=== PATIENT | female | born 1985 | race African-American/Black ===

== ENCOUNTER 2020-03-13 07:00 | Outpatient (CLI) | payer OTHER ==
[2020-03-15 20:15] LABS: CANDIDA GROUP DNA NEGATIVE (NEGATIVE); CANDIDA KRUSEI DNA NEGATIVE (NEGATIVE); TRICHOMONAS VAGINALIS DNA NEGATIVE (NEGATIVE)
== END 2020-03-13 23:59 | disposition home or self-care (01) ==
LOC: LAB.R 07:00
PROVIDERS: ATTEND Nurse Practitioner
DX: N76.0 Acute vaginitis (principal)
CPT/HCPCS: 87661; 87801

== ENCOUNTER 2020-03-21 08:00 | Outpatient (CLI) | payer OTHER ==
[2020-03-21 19:04] LABS: BASOPHILS # (AUTO) 0.1 10^3/uL (0.0-0.1); BASOPHILS % (AUTO) 0.7 %; EOSINOPHILS # (AUTO) 0.2 10^3/uL (0.0-0.7); EOSINOPHILS % (AUTO) 2.7 %; HGB - HEMOGLOBIN 11.8 g/dL (12.0-16.0); LYMPHOCYTES % (AUTO) 29.9 %; MEAN CORPUSCULAR HEMOGLOBIN 25.3 pg (27.0-31.0); MEAN CORPUSCULAR HGB CONC 31.6 g/dL (32.0-36.0); MEAN CORPUSCULAR VOLUME 79.9 fL (81.0-99.0); MEAN PLATELET VOLUME 10.6 fL (7.9-10.8); MONOCYTES # (AUTO) 0.5 10^3/uL (0.0-1.0); MONOCYTES % (AUTO) 8.1 %; NEUTROPHILS # (AUTO) 3.9 10^3/uL (1.5-6.6); NEUTROPHILS % (AUTO) 58.2 %; PLT - PLATELET COUNT 365 10^3/uL (130-450); RED BLOOD COUNT 4.67 10^6/uL (4.20-5.40); RED CELL DISTRIBUTION WIDTH 15.1 % (12.0-15.0); WHITE BLOOD COUNT 6.7 x10^3/uL (4.8-10.8)
[2020-03-21 19:39] LABS: ALBUMIN 3.8 g/dL (3.2-5.5); ALBUMIN/GLOBULIN RATIO 0.9 (1.0-2.2); ALKALINE PHOSPHATASE 50 IU/L (42-121); ALT ALANINE AMINOTRANSFERASE 17 IU/L (10-60); AST ASPARTATE AMINOTRANSFERASE 15 IU/L (10-42); BILIRUBIN,TOTAL 0.4 mg/dL (0.2-1.0); BUN - BLOOD UREA NITROGEN 11 mg/dL (6-20); CALCIUM 9.1 mg/dL (8.5-10.3); CARBON DIOXIDE - CO2 23 mmol/L (21-32); CHLORIDE 102 mmol/L (101-111); CHOL/HDL RATIO 2.4 (<4.4); CHOLESTEROL 194 mg/dL; CREATININE 0.8 mg/dL (0.4-1.0); GLUCOSE 80 mg/dL (70-100); HDL CHOLESTEROL 81 mg/dL; LDL CHOLESTEROL,CALCULATED 101 mg/dL; LDL/HDL RATIO 1.2 (<4.4); SODIUM 137 mmol/L (135-145); VLDL CHOLESTEROL 12 mg/dL
== END 2020-03-21 08:01 | disposition home or self-care (01) ==
LOC: LAB.WCP 08:00
PROVIDERS: ATTEND Nurse Practitioner
DX: E66.9 Obesity, unspecified (principal); Z13.220 Encounter for screening for lipoid disorders; Z13.228 Encounter for screening for other metabolic disorders
CPT/HCPCS: 36415; 80053; 80061; 83721; 84443; 85025

== ENCOUNTER 2020-04-01 14:06 | Outpatient (CLI) | payer OTHER ==
[2020-04-01 18:22] LABS: % IRON SATURATION 10 % (20-50); IRON 35 ug/dL (28-170); TOTAL IRON BINDING CAPACITY 354 ug/dL (250-450); TRANSFERRIN 253 mg/dL (192-382)
== END 2020-04-01 23:59 | disposition home or self-care (01) ==
LOC: LAB.WCP 14:06
PROVIDERS: ATTEND Nurse Practitioner
DX: D50.9 Iron deficiency anemia, unspecified (principal)
CPT/HCPCS: 36415; 82728; 83540; 84466

== ENCOUNTER 2020-05-09 08:00 | Outpatient (CLI) | payer OTHER ==
[2020-05-09 18:05] LABS: BASOPHILS # (AUTO) 0.1 10^3/uL (0.0-0.1); BASOPHILS % (AUTO) 0.7 %; EOSINOPHILS # (AUTO) 0.2 10^3/uL (0.0-0.7); EOSINOPHILS % (AUTO) 2.7 %; LYMPHOCYTES # (AUTO) 2.1 10^3/uL (1.5-3.5); MEAN CORPUSCULAR HEMOGLOBIN 25.3 pg (27.0-31.0); MEAN CORPUSCULAR HGB CONC 31.7 g/dL (32.0-36.0); MEAN PLATELET VOLUME 11.1 fL (7.9-10.8); MONOCYTES # (AUTO) 0.6 10^3/uL (0.0-1.0); MONOCYTES % (AUTO) 8.3 %; NEUTROPHILS # (AUTO) 4.3 10^3/uL (1.5-6.6); NEUTROPHILS % (AUTO) 58.9 %; PLT - PLATELET COUNT 370 10^3/uL (130-450); RED BLOOD COUNT 4.74 10^6/uL (4.20-5.40); RED CELL DISTRIBUTION WIDTH 15.2 % (12.0-15.0); WHITE BLOOD COUNT 7.4 x10^3/uL (4.8-10.8)
[2020-05-09 18:18] LABS: % IRON SATURATION 13 % (20-50); IRON 57 ug/dL (28-170); TOTAL IRON BINDING CAPACITY 431 ug/dL (250-450); TRANSFERRIN 308 mg/dL (192-382)
== END 2020-05-09 23:59 | disposition home or self-care (01) ==
LOC: LAB.WCP 08:00
PROVIDERS: ATTEND Nurse Practitioner
DX: D50.9 Iron deficiency anemia, unspecified (principal)
CPT/HCPCS: 36415; 83540; 84466; 85025

== ENCOUNTER 2020-09-13 15:19 | Outpatient (CLI) | payer OTHER ==
[2020-09-13 18:50] LABS: RHEUMATOID FACTOR NEGATIVE (Negative)
[2020-09-17 12:26] LABS: ANA PATTERN Nuclear, Homogeneous; ANA SCREEN POSITIVE (NEGATIVE)
== END 2020-09-13 15:20 | disposition home or self-care (01) ==
LOC: LAB.N 15:19
PROVIDERS: ATTEND Internal Medicine
DX: D50.9 Iron deficiency anemia, unspecified (principal); M25.50 Pain in unspecified joint
CPT/HCPCS: 36415; 85651; 86038; 86140; 86200; 86430

== ENCOUNTER 2020-09-13 15:27 | Outpatient (CLI) | payer OTHER | END 2020-09-13 15:28 | disposition home or self-care (01) | LOC: DI.N 15:27 | PROVIDERS: ATTEND Internal Medicine | DX: M25.542 Pain in joints of left hand (principal); M25.541 Pain in joints of right hand; D50.9 Iron deficiency anemia, unspecified; M25.50 Pain in unspecified joint | CPT/HCPCS: 36415; 85651; 86038; 86140; 86200; 86430 ==

== ENCOUNTER 2020-09-15 12:23 | Outpatient (CLI) | payer OTHER ==
--- NOTE | 2020-09-15 12:50 | XRAY Report ---
PROCEDURE: Hand 3 View BILAT INDICATIONS: BILATERAL HAND ARTHRALGIA TECHNIQUE: 3 views of the hand(s) acquired. COMPARISON: None FINDINGS: Bones: There is no fracture. Alignment is normal. Joint spacing is maintained. Bone mineralization is within normal limits. No suspicious erosions. Soft tissues: No suspicious soft tissue calcifications. IMPRESSION: Unremarkable hand radiographs. Reviewed by: Matthias Coughlin DO on 09/15/2020 11:49 AM [place] Approved by: Matthias Coughlin DO on 09/15/2020 11:49 AM [place] Station ID: [id number]
== END 2020-09-15 12:24 | disposition home or self-care (01) ==
LOC: DI.N 12:23
PROVIDERS: ATTEND Internal Medicine
DX: M25.542 Pain in joints of left hand (principal); M25.541 Pain in joints of right hand

== ENCOUNTER 2021-05-20 15:02 | Outpatient (CLI) | payer OTHER ==
--- NOTE | 2021-05-20 17:16 | MRI Report ---
PROCEDURE: Hand RT W/O INDICATIONS: PAIN IN RIGHT HAND TECHNIQUE: Noncontrast coronal T1 spin echo and T2 fast spin echo with fat saturation, axial proton density fast spin echo and T2 fast spin echo with fat saturation, sagittal T1 spin echo and STIR through the hand and fingers. COMPARISON: None. Reference is made to the hand radiograph dated September 15, 2020. FINDINGS: Image quality: Excellent. Bones: The bones are normally aligned, without marrow contusions or fractures. No intra-osseous les ions. Interphalangeal joint(s): The accessory and proper collateral ligaments appear intact. The volar pl ate demonstrates normal morphology. The extensor central slips appear intact on sagittal images. Metacarpophalangeal joint(s): The accessory and proper collateral ligaments appear intact, as well a s the volar plate and adjacent deep transverse metacarpal ligaments. Extensor apparatus: The central slips insert normally on the middle phalangeal base. The conjoint a nd terminal tendons insert normally on the distal phalangeal bases. More proximal portions of the ex tensor tendons also appear normal. Flexor apparatus: Fluid signal surrounds the flexor pollicis longus and fifth digit flexor digitorum tendon (i.e. 701-31), compatible with tenosynovitis. The remaining flexor digitorum superficialis and profundus tendons both appear intact. The annular and cruciform pulleys appear intact. Soft tissues: Visualized muscles demonstrate normal bulk and internal signal. No intramuscular mass es identified. No ganglion cysts. IMPRESSION: 1. Tenosynovitis of the flexor pollicis longus and fifth digit flexor digitorum. Reviewed by: Paulo Donald MD on 05/20/2021 5:15 PM PST Approved by: Paulo Donald MD on 05/20/2021 5:15 PM PST Station ID: [id number]
== END 2021-05-20 15:03 | disposition home or self-care (01) ==
LOC: DI 15:02
PROVIDERS: ATTEND Internal Medicine Rheumatology
DX: M65.9 Synovitis and tenosynovitis, unspecified (principal)

== ENCOUNTER 2021-06-21 09:20 | Outpatient (CLI) | payer OTHER ==
[2021-06-21 13:44] LABS: BASOPHILS # (AUTO) 0.1 10^3/uL (0.0-0.1); BASOPHILS % (AUTO) 1.2 %; EOSINOPHILS # (AUTO) 0.3 10^3/uL (0.0-0.7); EOSINOPHILS % (AUTO) 6.6 %; HCT - HEMATOCRIT 40.5 % (37.0-47.0); HGB - HEMOGLOBIN 12.8 g/dL (12.0-16.0); LYMPHOCYTES # (AUTO) 1.4 10^3/uL (1.5-3.5); LYMPHOCYTES % (AUTO) 29.7 %; MEAN CORPUSCULAR HEMOGLOBIN 25.4 pg (27.0-31.0); MEAN CORPUSCULAR HGB CONC 31.6 g/dL (32.0-36.0); MEAN CORPUSCULAR VOLUME 80.4 fL (81.0-99.0); MEAN PLATELET VOLUME 10.5 fL (7.9-10.8); MONOCYTES # (AUTO) 0.6 10^3/uL (0.0-1.0); MONOCYTES % (AUTO) 11.8 %; NEUTROPHILS # (AUTO) 2.5 10^3/uL (1.5-6.6); NEUTROPHILS % (AUTO) 50.5 %; PLT - PLATELET COUNT 301 10^3/uL (130-450); RED BLOOD COUNT 5.04 10^6/uL (4.20-5.40); RED CELL DISTRIBUTION WIDTH 14.4 % (12.0-15.0); WHITE BLOOD COUNT 4.9 x10^3/uL (4.8-10.8)
[2021-06-21 13:59] LABS: ALBUMIN 3.8 g/dL (3.2-5.5); ALBUMIN/GLOBULIN RATIO 0.9 (1.0-2.2); ALKALINE PHOSPHATASE 38 IU/L (42-121); ALT ALANINE AMINOTRANSFERASE 15 IU/L (10-60); AST ASPARTATE AMINOTRANSFERASE 19 IU/L (10-42); BILIRUBIN,TOTAL 0.6 mg/dL (0.2-1.0); BUN - BLOOD UREA NITROGEN 12 mg/dL (6-20); CALCIUM 8.9 mg/dL (8.5-10.3); CARBON DIOXIDE - CO2 24 mmol/L (21-32); CHLORIDE 103 mmol/L (101-111); CHOL/HDL RATIO 2.5 (<4.4); CHOLESTEROL 223 mg/dL; CREATININE 0.8 mg/dL (0.4-1.0); GFR - MDRD 100 (>89); GLUCOSE 93 mg/dL (70-100); HDL CHOLESTEROL 88 mg/dL; LDL CHOLESTEROL,CALCULATED 111 mg/dL; LDL/HDL RATIO 1.3 (<4.4); POTASSIUM 4.3 mmol/L (3.5-5.0); SODIUM 135 mmol/L (135-145); TRIGLYCERIDES 118 mg/dL; VLDL CHOLESTEROL 24 mg/dL
[2021-06-21 14:09] LABS: THYROID STIMULATING HORMONE 1.36 uIU/mL (0.34-5.60)
== END 2021-06-21 09:21 | disposition home or self-care (01) ==
LOC: LAB.N 09:20
PROVIDERS: ATTEND Physician Assistant Medical
DX: Z00.00 Encounter for general adult medical examination without abnormal findings (principal)
CPT/HCPCS: 36415; 80053; 80061; 83721; 84443; 85025

== ENCOUNTER 2021-07-05 09:43 | Outpatient (CLI) | payer OTHER ==
[2021-07-05 15:19] LABS: % IRON SATURATION 26 % (20-50); IRON 98 ug/dL (28-170); TOTAL IRON BINDING CAPACITY 382 ug/dL (250-450); TRANSFERRIN 273 mg/dL (192-382)
== END 2021-07-05 09:44 | disposition home or self-care (01) ==
LOC: LAB.N 09:43
PROVIDERS: ATTEND Nurse Practitioner Family
DX: D50.9 Iron deficiency anemia, unspecified (principal)
CPT/HCPCS: 36415; 82728; 83540; 84466

== ENCOUNTER 2021-07-16 15:39 | Outpatient (CLI) | payer OTHER ==
--- NOTE | 2021-07-16 16:46 | XRAY Report ---
PROCEDURE: Ankle 3 View RT INDICATIONS: RIGHT ANKLE PX TECHNIQUE: 3 views of the ankle were acquired. COMPARISON: None FINDINGS: Bones: No fractures or dislocations. Ankle mortise is normally aligned. No suspicious bony lesions . There is cystic change in the tip of the distal fibula, which has a benign appearance. There is ort hopedic hardware in the midfoot and hindfoot, intact. Soft tissues: No tibiotalar joint effusion. Achilles tendon appears normal. IMPRESSION: No evidence of acute bony abnormality of the right ankle. Reviewed by: Stu Tirado MD on 07/16/2021 4:45 PM PST Approved by: Stu Tirado MD on 07/16/2021 4:45 PM PST Station ID: [id number]
== END 2021-07-16 15:40 | disposition home or self-care (01) ==
LOC: DI 15:39
PROVIDERS: ATTEND Podiatrist
DX: M25.571 Pain in right ankle and joints of right foot (principal)

== ENCOUNTER 2022-02-10 14:27 | Outpatient (CLI) | payer OTHER | END 2022-02-10 14:28 | disposition home or self-care (01) | LOC: SC 14:27 | PROVIDERS: ATTEND Nurse Practitioner Family | DX: G47.33 Obstructive sleep apnea (adult) (pediatric) (principal); R09.02 Hypoxemia; E66.01 Morbid (severe) obesity due to excess calories; Z68.43 Body mass index [BMI] 50.0-59.9, adult | CPT/HCPCS: 95806 ==

== ENCOUNTER 2022-02-25 14:48 | Outpatient (CLI) | payer OTHER ==
--- NOTE | 2022-02-26 11:59 | MRI Report ---
PROCEDURE: Knee LT W/O INDICATIONS: CHRONIC LEFT KNEE INSTABILITY TECHNIQUE: Noncontrast sagittal PD fast spin echo and T2 fast spin echo with fat saturation, sagittal 3-D spoile d GE with fat saturation; coronal T1 spin echo and PD fast spin echo with fat saturation, and axial P D fast spin echo with fat saturation through the knee. COMPARISON: None. FINDINGS: Image quality: Images are degraded by decreased [id number] ratio related to patient body habitus and inability to use a dedicated knee coil. Some diagnostic information is obtained Anterior cruciate ligament: Intact. Posterior cruciate ligament: Intact. Medial collateral ligament: Intact. Lateral collateral ligament: Intact. Medial meniscus: No displaced meniscal tear; however, evaluation of the meniscus is compromised by i mage quality factors described above. Lateral meniscus: No displaced meniscal tear; however, evaluation of the meniscus is compromised by image quality factors described above. Medial and lateral tendons: The semimembranosus tendon insertions appear intact. Visualized portion s of the pes anserinus tendons appear normal. The popliteus tendon appears intact. Iliotibial band appears normal. Anterior structures: Mild patellar tendinosis. The distal quadriceps tendon is intact. There is a co ngenitally shallow trochlear groove with moderate lateral patellar subluxation. The tibial tubercle-t rochlear groove distance measures approximately 2 cm. Bones: No acute trabecular bone injury or fracture. Articular cartilages: No large full-thickness cartilage defect. However, the articular cartilages ar e not well evaluated due to reduced image quality as described above. Soft tissues: There is a medium-sized joint effusion. There is a trace medial popliteal cyst. The m usculature surrounding the knee is normal in bulk. There is hypertrophy of the subcutaneous adipose t issues. 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 The tibial tubercle-trochlear groove distance is elevated at approximately 2 cm. No acute trabecular bone injur y or fracture. 2.Mild patellar tendinosis. 3.Cruciate and collateral ligaments are intact. Menisci and articular cartilages are not well evaluat ed. 4.Moderate joint effusion. Reviewed by: Nader Read MD on 02/26/2022 11:58 AM PDT Approved by: Nader Read MD on 02/26/2022 11:58 AM PDT Station ID: [id number]
== END 2022-02-25 14:49 | disposition home or self-care (01) ==
LOC: DI 14:48
PROVIDERS: ATTEND Internal Medicine
DX: M67.864 Other specified disorders of tendon, left knee (principal); M25.462 Effusion, left knee

== ENCOUNTER 2022-02-27 16:08 | Outpatient (CLI) | payer OTHER ==
--- NOTE | 2022-02-27 15:37 | SLEEP CARE CONSULTATION ---
Information from patient questionnaire entered by Jaspal Pete. I have reviewed and concur with the information entered by Jaspal Pete. This document represents the service I personally performed and the decisions made by , Billie Burger ARNP. History of Present Illness Service Date and Time: 02/27/2022 1520 Initial Ailey Sleepiness Scale score: 6 (01/21/2022) Current Ailey Sleepiness Scale score: 8 Additional HPI information: BRONWYN MCNAMARA returns via video telehealth visit for follow up and results of the recently performed home sleep study. I explained the pathophysiology behind obstructive sleep apnea. We then spent quite a bit of time discussing different treatment options. For mild obstructive sleep apnea, surgery and oral appliance are alternatives to nasal CPAP therapy but in moderate or severe cases, nasal CPAP is the most effective and reliable treatment. Because apnea is primarily in non-supine position, then positional management therapy could be effective. Methods discussed such as positioning with pillows to prevent non-supine sleep. I reviewed the impact of weight changes on sleep apnea and strongly recommended losing weight. Patient was cautioned about risks of drowsy driving until sleepiness symptoms resolve. Sleep Study - Results Type of Sleep Study: Polysomnography (DONE 02/10/22) Prior sleep studies: Yes Year and Where: 12-15 yrs ago; [facility] [place], [place] Polysomnography/Home Sleep Study results: Physician Impression: The quality of the study is good. The length of the study is adequate (> 240 minutes). Please also see the tabulated and graphic data. 1. Obstructive Sleep Apnea-Hypopnea (ICD-10 G47.33), mild, with an AHI of 8.1/hr and bryce SaO2 of 85%. During the study, the patient had 23 apneas (23 obstructive, 0 central, 0 mixed) and 12 hypopneas. The longest episode lasted 60.0 seconds. The respiratory events occurred more frequently during non-supine sleep (supine AHI was 2.6 and non-supine, 10.08). 2. Hypoxemia (ICD-10 R09.02), mild, with the lowest oxygen saturation of 85 % and 2.0 minutes with SaO2 under 90%. Baseline oxygen saturation was normal (Average oxygen saturation was 95%). Allergies and Home Medications Home medication list reviewed: Yes (no changes) Review of Systems Review of systems same as previous: Yes (no changes) Physical Exam Vital signs obtained and entered by: VIA PHONE Height: 5 ft 9 in Weight: 345 lb (pt reported) Body Mass Index: 50.9 BMI Classification: Morbidly Obese Impression and Plan 1. Obstructive Sleep Apnea-Hypopnea Syndrome, mild, with lowest oxygen saturation of 85%. Obviously this is the cause of the patients symptoms of unrefreshed sleep, and excessive daytime sleepiness. Positive pressure therapy could benefit anxiety and asthma. The patient chose an oral appliance to treat their apnea. A 3 month follow up will be made to see if appliance has reduced symptoms. If so, another polysomnography will be ordered with use of the oral appliance to check efficacy in reducing apnea. Until patient is able to use the oral appliance, positional therapy is advised to avoid supine sleep with pillow positioning. 2. Obesity, unspecified. Currently patients BMI is 50.9. Obesity increases the risk of apnea, CPAP pressure requirements and overall health risks especially cardiovascular and diabetes. Thus patient is advised to lose weight. * Oral appliance * Attempt to lose weight * Avoid non-supine sleep until able to use oral appliance * Return for follow up in about 3 months, or sooner if concerns arise Counseling Topics: Sleeping position, Weight loss health impact Visit Type: Telehealth Video ([phone]) Video Type: Doximity Patient Location: Office Location of Provider: Office Patient agrees and consents to this telehealth visit type: Yes Patient agrees to have their insurance billed: Yes Time Spent with Patient (minutes): 12 Provider Statement: I spent 100% of the Telehealth Video Call with the patient with greater than 50% spent counseling the patient and coordination of care.
== END 2022-02-27 16:09 | disposition home or self-care (01) ==
LOC: SC 16:08
PROVIDERS: ATTEND Nurse Practitioner Family
DX: G47.33 Obstructive sleep apnea (adult) (pediatric) (principal); E66.01 Morbid (severe) obesity due to excess calories; Z68.43 Body mass index [BMI] 50.0-59.9, adult